=== PATIENT | female | born 1990 | race Caucasian/White ===

== ENCOUNTER 2020-08-02 06:55 | Outpatient (CLI) | payer OTHER, SELFPAY ==
--- NOTE | 2020-08-02 07:15 | US_ITS ---
WS: [id number] RIGHT UPPER QUADRANT ULTRASOUND HISTORY: R19.7 - Diarrhea, unspecified COMPARISON: None available. Liver: 18.1 cm in length. Moderately enlarged liver. Coarsened echotexture throughout. No mass identi fied. No bile duct dilatation. Gallbladder: Slightly contracted gallbladder with mild diffuse gallbladder wall thickening. Gallbladd er wall measures 3.8 mm. No pericholecystic fluid. No cholelithiasis. CBD: 0.4 cm Pancreas: Normal size and echogenicity. Right kidney: 12.9 cm in length. Normal size and echogenicity. No hydronephrosis or mass. Aorta and IVC: Unremarkable abdominal aorta and IVC. No ascites. US/US gall bladder 38241 IMPRESSION: 1. Mildly contracted gallbladder with thickened wall. No evidence for acute ch olecystitis. No pericholecystic fluid. 2. Enlarged liver with hepatic steatosis.
== END 2020-08-02 06:56 | disposition home or self-care (01) ==
PROVIDERS: PCP Clinical Nurse Specialist Adult Health; Visit Provider Surgery
DX: R19.7 Diarrhea, unspecified (principal); R16.0 Hepatomegaly, not elsewhere classified; K76.0 Fatty (change of) liver, not elsewhere classified
CPT/HCPCS: 76705

== ENCOUNTER 2020-08-30 06:05 | Outpatient (CLI) | payer OTHER, SELFPAY ==
--- NOTE | 2020-08-30 08:00 | NM_ITS ---
WS: [id number] NUCLEAR MEDICINE HIDA SCAN WITH GALLBLADDER EJECTION FRACTION HISTORY: R19.7 - Diarrhea, unspecified COMPARISON: Gallbladder ultrasound 08/02/2020 TECHNIQUE: The patient was intravenously injected with 5.9 mCi of TC99m Mebrofenin. Immediate imaging over the right upper quadrant was followed by 5 minute image and additional images for a total of 60 minutes. Normal uptake of radiotracer throughout the liver. Activity identified in the gallbladder at 30 minutes and well distended by 60 minutes. Activity in the proximal small bowel was seen by 20 minutes. Good washout of the radiotracer from the liver by 60 minutes. The patient then drank 8 ounces of Ensure Plus. Ejection fraction at 60 minutes was 92%. Normal GB ej ection fraction is 35-75%. Post fatty meal symptoms: None. NM/NM hepatobiliary w phar* [id number] IMPRESSION: 1. Normal HIDA scan. 2. Normal gallbladder ejection fraction.
== END 2020-08-30 06:06 | disposition home or self-care (01) ==
PROVIDERS: PCP Clinical Nurse Specialist Adult Health; Visit Provider Surgery
DX: R19.7 Diarrhea, unspecified (principal)
CPT/HCPCS: 78227; A9537

== ENCOUNTER → 2020-09-07 14:13 | Outpatient (BNVA) | payer OTHER, SELFPAY | PROVIDERS: PCP Clinical Nurse Specialist Adult Health; Visit Provider Surgery | DX: R19.7 Diarrhea, unspecified (principal) | CPT/HCPCS: 87635 ==

== ENCOUNTER 2020-09-13 09:26 | Day surgery (SDC) | payer OTHER, SELFPAY ==
[2020-09-13 09:46] VITALS: BP 134/88; PULSE 77; RESP 16; TEMP 37.1; O2SAT 97
--- NOTE | 2020-09-13 09:54 | ANES.PREANE2 ---
Pre-Anesthetic Assessment Pre-Anesthetic Assessment: Height/Weight: Height 1.78 m Weight 113.398 kg Preop Diagnosis: Change in bowel habits Proposed Procedure: Operation Date: 09/13/20 10:30 Proposed Procedures p EGD 05214 R19.7(Not Applicable) - Richard Dimas MD s Colonoscopy 12161 R19.7(Not Applicable) - Richard Dimas MD Familial anesthetic complications: slow to awakening with tonsillectomy Was Beta Gregg taken within 24 hours: N/A Was Clonidine taken within 24 hours: N/A Social: Social History: No alcohol and No tobacco Exam: Pre-Anes Outpt Exam: alert, oriented x 3, clear to auscultation bilaterally and regular rate & rhythm Airway: Submandibular: WNL Cervical ROM: WNL MP: 1 Dentition: Chipped History/ROS: No significant history except as noted Pulmonary: Pulmonary: Asthma (rarely uses inhaler) CV/HEM: CV/HEM: HTN : Comments: renal stones Hepatic: Hepatic: None reported GI: GI: GERD (during ) Metabolic: Metabolic: Morbid obesity Musc/skel: Musc/skel: Fibromyalgia Neuropsych: Neuropsych: Anxiety, Depression and CUMMINGS Anesthetic Plan: ASA status: 2 Anesthesia: Anesthesia Evaluation and MAC Risk of > 500 ml blood loss (7ml/kg in children): No PFSH Anesthesia PFSH: Family History Denies family history of Diabetes CAD (coronary artery disease) Cancer Hypertension Stroke Social History Smoking and tobacco status: never smoked Alcohol intake: never Lives independently: Yes Household members: spouse and children Marital status: Data Anesthesia Cardiac Studies: No Data to Display
[2020-09-13] MEDS: sodium chloride 0.9% 1,000 ML 30 ML IV (09:58)
[2020-09-13 10:45] LABS: OR HCG Qualitative Urine Negative (Negative)
--- NOTE | 2020-09-13 10:49 | P.HP_ITS ---
Same Day Surgery H&P Indication for Procedure/HPI DATE OF PROCEDURE: September 13, 2020 CHIEF COMPLAINT/INDICATIONFOR SURGICAL PROCEDURE: Change in bowel habits/NAUZEA PREOP DIAGNOSIS: Change in bowel habits/nausea PLANNED PROCEDRUE: Operation Date: 09/13/20 10:30 Proposed Procedures p EGD 50033 R19.7(Not Applicable) - Richard Dimas MD s Colonoscopy 51445 R19.7(Not Applicable) - Richard Dimas MD This is a pleasant 30 years old female patient with history of obesity of a current BMI of 37.1 patient gives history of fibromyalgia referred to my practice with worsening loose stools. Patient is referred to me for further evaluation as she reports that she has history of anxiety and never diagnosed with irritable bowel syndrome and she does not recall any history of inflammatory bowel disease. Patient is adopted so she is not aware of any particular family history with any GI problems including colon cancer. Never undergone a diagnostic EGD and celiac disease has not been ruled out. She still have her gallbladder and sometimes she does encounter loose stools after greasy food but currently any kind of food makes her have loose stools. No evidence of bleeding per rectum and no stool studies available. Interim history 09/13/2020 Patient comes today for diagnostic EGD and colonoscopy ROS All systems have been reviewed negative all systems have been reviewed negative except as per the above or per problem list Medications/Allergies* Home Medications Medication Instructions Recorded Confirmed Type albuterol sulfate 0.63 mg/3 mL 0.63 mg INHALATION Q6H 06/30/20 09/13/20 History solution for nebulization ascorbate calcium (vitamin C) 500 500 mg PO DAILY 06/30/20 09/13/20 History mg tablet buspirone 5 mg tablet 10 mg PO BID 06/30/20 09/13/20 History cholecalciferol (vitamin D3) 10 10 mcg PO DAILY 06/30/20 09/13/20 History mcg (400 unit) capsule citalopram 40 mg tablet 40 mg PO DAILY 06/30/20 09/13/20 History iron 18 mg tablet 18 mg PO DAILY 06/30/20 09/13/20 History loratadine [Claritin] 10 mg PO DAILY 09/09/20 09/13/20 History Allergies/Adverse Reactions Allergy/AdvReac Type Severity Reaction Status Date / Time amoxicillin Allergy Severe diarrhea Verified 09/13/20 10:51 Current Medications: Generic Name Dose Route Start Last Admin Trade Name Jose PRN Reason Stop Dose Admin Sodium Chloride 1,000 mls @ 30 mls/hr 09/13/20 09:45 09/13/20 09:58 Sodium Chloride 0.9% IV 09/14/20 09:44 30 mls/hr .Q24H ART Administration Pertinent History/Comorbid Conditions* Family History (Updated 06/30/20 @ 11:56 by Codie Hebert) Denies family history of Diabetes CAD (coronary artery disease) Cancer Hypertension Stroke Social History Smoking and tobacco status: never smoked Alcohol intake: never Lives independently: Yes Household members: spouse and children Marital status: Pertinent Exam Findings alert, oriented x 3, clear to auscultation bilaterally, regular rate & rhythm and procedure specific exam findings (Abdominal examination nontender nondistended soft) Recommendations Surgery/Procedure today (EGD and colonoscopy) Other Plans: Plan of care; After thorough history and physical examination and reviewing the chart, plan to perform a diagnostic esophagogastroduodenoscopy and diagnostic colonoscopy with possible biopsy and possible polypectomy. I discussed with the patient in detail the risks,benefits,alternatives and indications.The risk of aspiration, bleeding, soft tissue injury, perforation of the stomach/esophagus/colon and other potential concomitant complications were explained to the patient in details also the potential need for Thoracotomy and or Laproscoy/Laparotomy to repair any related complications including but not limited to colectomy and or Closotomy. The patient understood this well and did agree to proceed. Rationale was carefully and clearly discussed with the patient.Appropriate i nformed consent have been reviewed and signed Verbal and written Instructions were given to the patient for colonoscopy prep Coding Level of Care Code Acute Defensive Fire Control Systems Operator for Grace Loya
[2020-09-13 11:15] VITALS: BP 111/64; PULSE 71; RESP 16; TEMP 36.1; O2SAT 97
[2020-09-13 11:32] VITALS: BP 114/69; PULSE 63; RESP 16; O2SAT 99
--- NOTE | 2020-09-13 18:58 | ANE.PACU2 ---
Inpatient post-anesthesia follow up: Airway intact: Yes Vital signs: Temperature 97 F Pulse Rate 63 Respiratory Rate 16 Blood Pressure 114/69 Pulse Oximetry 99 Oxygen Delivery Me thod Room Air Oxygen Flow Rate Fraction of Inspir ed Oxygen Hydration adequate: Yes Nausea and vomiting: No Pain level: 2 Mental status: Baseline
[2020-09-14 06:03] LABS: H. Pylori / CLO Test Negative
== END 2020-09-13 11:50 | disposition home or self-care (01) ==
PROVIDERS: Anesthesiology; PCP Clinical Nurse Specialist Adult Health; Visit Provider Surgery
PROC: 0DJ08ZZ Inspection of Upper Intestinal Tract, Via Natural or Artificial Opening Endoscopic (ICD-10-PCS; CPT 43235; principal; 2020-09-13 10:30)
PROC: 0DJD8ZZ Inspection of Lower Intestinal Tract, Via Natural or Artificial Opening Endoscopic (ICD-10-PCS; CPT 45378; 2020-09-13 10:30)
DX: R19.4 Change in bowel habit (principal); R11.0 Nausea; K29.70 Gastritis, unspecified, without bleeding; K29.80 Duodenitis without bleeding; E66.01 Morbid (severe) obesity due to excess calories; Z68.37 Body mass index [BMI] 37.0-37.9, adult; M79.7 Fibromyalgia; I10 Essential (primary) hypertension
CPT/HCPCS: 43239; 45378; 81025; 82274; 83630; 84703; 87077; 87493; 87506; 88305; 96360; J2704; J7030

== ENCOUNTER → 2020-09-21 12:04 | Outpatient (BNVA) | payer OTHER, SELFPAY | PROVIDERS: PCP Clinical Nurse Specialist Adult Health; Visit Provider Surgery | DX: Z20.822 Contact with and (suspected) exposure to COVID-19 (principal) | CPT/HCPCS: 87635 ==

== ENCOUNTER 2020-09-27 05:52 | Day surgery (SDC) | payer OTHER, SELFPAY ==
[2020-09-26 14:18] VITALS: BMI 36.9
[2020-09-27 06:10] VITALS: BP 130/75; PULSE 97; RESP 18; TEMP 36.4; O2SAT 97
--- NOTE | 2020-09-27 06:21 | P.HP_ITS ---
Same Day Surgery H&P Indication for Procedure/HPI DATE OF PROCEDURE: September 27, 2020 CHIEF COMPLAINT/INDICATIONFOR SURGICAL PROCEDURE: Abdominal pain PREOP DIAGNOSIS: Change in bowel habits/nausea PLANNED PROCEDRUE: Operation Date: 09/27/20 07:00 Proposed Procedures p Laparoscopic Cholecystectomy 64577 r10.11(Not Applicable) - Richard Dimas MD This is a pleasant 30 years old female patient with history of obesity of a current BMI of 37.1 patient gives history of fibromyalgia referred to my practice with worsening loose stools. Patient is referred to me for further evaluation as she reports that she has history of anxiety and never diagnosed with irritable bowel syndrome and she does not recall any history of inflamma tory bowel disease. Patient is adopted so she is not aware of any particular family history with any GI problems including colon cancer. Never undergone a diagnostic EGD and celiac disease has not been ruled out. She still have her gallbladder and sometimes she does encounter loose stools after greasy food but currently any kind of food makes her have loose stools. No evidence of bleeding per rectum and no stool studies available. Interim history is 05/14/2020 Patient comes today status post EGD and was found to have esophagitis gastritis and duodenitis and was placed on PPI therapy. And per colonoscopy stool studies showed C. difficile which is likely contaminant, and she was placed on vancomycin p.o. otherwise normal findings.Patient Patient undergone a HIDA scan and showed symptoms with the procedure in the form of bloating and nausea. Patient comes today for elective laparoscopic cholecystectomy. ROS All systems have been reviewed negative except as per the above or per problem list. Medications/Allergies* Home Medications Medication Instructions Recorded Confirmed Type albuterol sulfate 0.63 mg/3 mL 0.63 mg INHALATION Q6H 06/30/20 09/26/20 History solution for nebulization ascorbate calcium (vitamin C) 500 500 mg PO DAILY 06/30/20 09/27/20 History mg tablet buspirone 5 mg tablet 10 mg PO BID 06/30/20 09/27/20 History cholecalciferol (vitamin D3) 10 10 mcg PO DAILY 06/30/20 09/27/20 History mcg (400 unit) capsule citalopram 40 mg tablet 40 mg PO DAILY 06/30/20 09/27/20 History iron 18 mg tablet 18 mg PO DAILY 06/30/20 09/27/20 History loratadine [Claritin] 10 mg PO DAILY 09/09/20 09/27/20 History celecoxib 50 mg PO DAILY 09/26/20 09/27/20 History Allergies/Adverse Reactions Allergy/AdvReac Type Severity Reaction Status Date / Time amoxicillin Allergy Severe diarrhea Verified 09/27/20 06:31 Pertinent History/Comorbid Conditions* Family History (Updated 06/30/20 @ 11:56 by Codie Hebert) Denies family history of Diabetes CAD (coronary artery disease) Cancer Hypertension Stroke Social History Smoking and tobacco status: never smoked Alcohol intake: never Lives independently: Yes Household members: spouse and children Marital status: Pertinent Exam Findings alert, oriented x 3, clear to auscultation bilaterally, regular rate & rhythm and procedure specific exam findings (Abdominal examination nontender nondistended soft) Recommendations Surgery/Procedure today (Laparoscopic cholecystectomy possible open) Other Plans: Plan of care; After thorough history physical examination and reviewing the chart and images with my personal intrepreatation.I counseled the patient for laparoscopic cholecystectomy possible open, indications risks including but not limited injury to the common bile duct and/or other viscera,that may require potential future surgical interventions including but not limited to ERCP and or laparatomy that may include Hepatobiliary surgery.Benefits and alternatives all discussed with the patient, and patient did agree to proceed accordingly. All questions have been answered and all concerns have been addressed to patient's satisfaction. Rationale was carefully and clearly discussed with the patient.Appropriate informed consent have been reviewed and signed. Coding Level of Care Code Acute Computer Security Coordinator for Grace Loya
--- NOTE | 2020-09-27 06:31 | ANES.PREANE2 ---
Pre-Anesthetic Assessment Pre-Anesthetic Assessment: Height/Weight: Height 1.75 m Weight 113.398 kg Temp Pulse Resp BP Pulse Ox 97.6 F 97 18 130/75 97 09/27/20 06:10 09/27/20 06:10 09/27/20 06:10 09/27/20 06:10 09/27/20 06:10 Preop Diagnosis: Biliary colic Proposed Procedure: Operation Date: 09/27/20 07:00 Proposed Procedures p Laparoscopic Cholecystectomy 62303 r10.11(Not Applicable) - Richard Dimas MD Familial anesthetic complications: None Was Beta Gregg taken within 24 hours: N/A Was Clonidine taken within 24 hours: N/A Last intake: Intake Last Liquid Date 09/26/20 Last Liquid Time 19:00 Last Solid Date 09/26/20 Last Solid Time 19:00 Social: Social History: No alcohol and No tobacco Exam: Pre-Anes Outpt Exam: alert, oriented x 3, clear to auscultation bilaterally and regular rate & rhythm Airway: Cervical ROM: WNL MP: 2 Dentition: Chipped Pulmonary: Pulmonary: Asthma (mild, seasonal, not used inhaler in months) Metabolic: Metabolic: Morbid obesity Neuropsych: Neuropsych: Anxiety Anesthetic Plan: ASA status: 2 Anesthesia: General Other: Sometimes wakes up anxious Risk of > 500 ml blood loss (7ml/kg in children): No PFSH Anesthesia PFSH: Family History Denies family history of Diabetes CAD (coronary artery disease) Cancer Hypertension Stroke Social History Smoking and tobacco status: never smoked Alcohol intake: never Lives independently: Yes Household members: spouse and children Marital status: Female Reproductive History: Date of last menstrual period: 09/26/20 Data Anesthesia Cardiac Studies: No Data to Display
[2020-09-27 06:34] VITALS: BMI 35.9
[2020-09-27] MEDS: sodium chloride 0.9% 1,000 ML 30 ML IV (06:57)
[2020-09-27] MEDS: vancomycin 1,500 MG/300 ML PIGGYBACK 200 MG IV (07:03)
[2020-09-27] MEDS: lidocaine 2% INJ 20 mL INJECTION (07:40)
--- NOTE | 2020-09-27 08:12 | P.OP_ITS ---
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 Time-out was done verifying the patient's name/date of /planned procedure and destination after the procedure, all were in agreement. SCDs confirmed to be functioning, preoperative antibiotics administered per protocol, and beta luciana protocol was confirmed. Patient was appropriately secured to the table, footboard was applied to the OR table, before prep and drape anesthesia was asked to tilt the table back and forth to make sure that the patient is appropriately secured and she was. Prep and drape of the abdomen was done under the usual sterile technique, followed by that supraumbilical skin incision,skin incision was done by a 15 blade knife, and stay sutures were applied to the fascia and Abrams trocar technique was used to enter the abdominal without injuring any abdominal viscera, started by low flow gas insufflation followed by a high flow, started with a 10 mm laparoscope and under direct vision there was no evidence of any injuries, the scope then switched to a 30? ,10 millimeter scope and under direct visualization 5 millimeter trocar was inserted in the epigastric region followed by two 5 mm trocars were inserted in the right upper quadrant that was done after injection of local lidocaine 2% at all incision sites. Gallbladder showed chronic cholecystitis, mild enlargement of the liver due to fatty liver rest of the viscera look normal. Patient was then positioned in the head up and tilted to the left Ratcheted forceps were introduced into the lateral most 5mm port and was applied unto the fundus of the gallbladder cephalad and using Bullet forceps the infundibulum of the gallbladder was retracted laterally. Using [place] forceps then L-hook cautery to dissect the peritoneum overlying the Calot's triangle whihc was then opened medially and laterally until the cystic duct and the cystic artery were skeletonized. Dissection was carried along the body of the gallbladder and after ensuring critical view of safety was identfied. Cystic duct and cystic artery where seen connected to the gallbladder. Clips were applied on the cystic duct towards the common bile duct 1 towards the gallb ladder then divided is in sharp scissors, 2 clips were then applied onto the cystic artery and 1 towards the gallbladder and divided by sharp scissors. Dissection was then carried along of the gallbladder from the gallbladder fossa using cautery as well as sharp dissection with heat energy. The gallbladder then was dissected out from the gallbladder fossa totally , cholecystectomy was then achieved and was placed in an Endo Catch bag and then retrieved from the Abrams trocar site under direct visualization using a 5 mm 30? scope through the epigastric trocar, specimen was then passed to the circulating nurse to go for permanent pathology,irrigation and hemostasis was done to the gallbladder fossa after hemostasis was secured, final survey laparoscopy was done that showed no injuries. Suction irrigation was obtained, compression hemostasis was achieved by placing a small piece of Surgicel at the gallbladder fossa. There was some oozing from the right far lateral 5 mm trocar. And Bovie cauterization was applied and that seemed to help yet I elected to place A 5 mm clips for completion. The supraumbilical fascial defect was then closed using interrupted #1 PDS sutures using a fascial closure device ;Rick Xie under direct visualization Gas was allowed to deflate,Trocars were then taken out under direct vision there was no evidence of bleeding Specimen was passed to the circulating nurse for permanent pathology. No drains were placed and the supraumbilical incision as well as all trocar sites were closed by 3-0 Vicryl then by 4-0 Monocryl to approximate the skin edges of the supraumbilical incision, dressing was applied in the form of Dermabond and the patient patient got extubated and was taken to recovery area in a stable condition. Count of sponges, needles and instruments were completed at the end of the procedure I was present for the whole entire procedure.
[2020-09-27 08:34] VITALS: BP 119/53; PULSE 96; RESP 12; TEMP 36.6; O2SAT 92
--- NOTE | 2020-09-27 08:36 | P.PCN_ITS ---
PACU note PACU note: VSS, Good respiratory effort, report to WRAPPER OFF Post-Anesthesia Exam: awake
--- NOTE | 2020-09-27 08:36 | PM.PACU ---
PACU note PACU note: VSS, Good respiratory effort, report to CHANGEOVER OPERATOR Post-Anesthesia Exam: awake
[2020-09-27 08:40] VITALS: BP 109/67; PULSE 95; RESP 16; O2SAT 94
[2020-09-27 08:45] VITALS: BP 115/56; PULSE 92; RESP 17; TEMP 36.4; O2SAT 95
[2020-09-27 08:46] VITALS: BP 115/56; PULSE 85; RESP 18; O2SAT 94
[2020-09-27] MEDS: HYDROcodone-acetaminophen 5-325 mg Tablet 1 TAB PO (09:18)
[2020-09-27 09:20] VITALS: BP 122/72; PULSE 64; RESP 18; O2SAT 96
--- NOTE | 2020-09-27 17:07 | ANE.PACU2 ---
Inpatient post-anesthesia follow up: Airway intact: Yes Vital signs: Temperature 97.6 F Pulse Rate 64 Respiratory Rate 18 Blood Pressure 122/72 Pulse Oximetry 96 Oxygen Delivery Me thod Room Air Oxygen Flow Rate Fraction of Inspir ed Oxygen Hydration adequate: Yes Nausea and vomiting: No Pain level: 2 Mental status: Baseline
== END 2020-09-27 09:42 | disposition home or self-care (01) ==
PROVIDERS: PCP Clinical Nurse Specialist Adult Health; Visit Provider Surgery
PROC: 0FT44ZZ Resection of Gallbladder, Percutaneous Endoscopic Approach (ICD-10-PCS; CPT 47562; principal; 2020-09-27 07:00)
DX: K80.10 Calculus of gallbladder with chronic cholecystitis without obstruction (principal); J45.909 Unspecified asthma, uncomplicated; E66.01 Morbid (severe) obesity due to excess calories; Z68.35 Body mass index [BMI] 35.0-35.9, adult; F41.9 Anxiety disorder, unspecified; M79.7 Fibromyalgia
CPT/HCPCS: 47562; 87493; 88304; 96365; J1100; J2370; J2405; J2704; J2710; J3010; J3370; J3490; J7030

== ENCOUNTER → 2022-12-11 08:05 | Outpatient (BNVA) | payer MEDICAID, SELFPAY | PROVIDERS: PCP Clinical Nurse Specialist Adult Health; Visit Provider Nurse Practitioner Women's Health | DX: R10.2 Pelvic and perineal pain (principal); E28.2 Polycystic ovarian syndrome | CPT/HCPCS: 76830 ==

== ENCOUNTER → 2022-12-21 07:04 | Outpatient (BNVA) | payer MEDICAID, SELFPAY | PROVIDERS: PCP Clinical Nurse Specialist Adult Health; Visit Provider Clinical Nurse Specialist Adult Health | DX: R30.0 Dysuria (principal); R39.15 Urgency of urination | CPT/HCPCS: 81000; 87086 ==

== ENCOUNTER → 2023-01-23 11:39 | Outpatient (BNVA) | payer MEDICAID, SELFPAY | PROVIDERS: PCP Clinical Nurse Specialist Adult Health; Visit Provider Clinical Nurse Specialist Adult Health | DX: I10 Essential (primary) hypertension (principal) | CPT/HCPCS: 80053; 83036; 84443; 85025 ==

== ENCOUNTER → 2023-06-05 07:45 | Outpatient (BNVA) | payer OTHER, MEDICAID, SELFPAY | PROVIDERS: PCP Clinical Nurse Specialist Adult Health; Visit Provider Clinical Nurse Specialist Adult Health | DX: I10 Essential (primary) hypertension (principal); R73.03 Prediabetes | CPT/HCPCS: 80053; 83036; 85025 ==

== ENCOUNTER → 2023-06-19 07:54 | Outpatient (BNVA) | payer OTHER, MEDICAID, SELFPAY | PROVIDERS: Visit Provider Obstetrics & Gynecology | DX: R10.2 Pelvic and perineal pain (principal); N83.02 Follicular cyst of left ovary; N83.01 Follicular cyst of right ovary | CPT/HCPCS: 76830 ==

== ENCOUNTER 2023-06-27 06:00 | Outpatient (RCR) | payer OTHER, MEDICAID, SELFPAY | END 2023-07-26 23:59 | disposition home or self-care (01) | LOC: SPT 06:00 | PROVIDERS: PCP Clinical Nurse Specialist Adult Health; Visit Provider Obstetrics & Gynecology | DX: R10.2 Pelvic and perineal pain (principal) | CPT/HCPCS: 97110; 97161; 97530 ==

== ENCOUNTER 2023-07-27 06:00 | Outpatient (RCR) | payer OTHER, MEDICAID, SELFPAY | END 2023-08-25 23:59 | disposition home or self-care (01) | LOC: SPT 06:00 | PROVIDERS: PCP Clinical Nurse Specialist Adult Health; Visit Provider Obstetrics & Gynecology | DX: R10.2 Pelvic and perineal pain (principal) | CPT/HCPCS: 97110; 97530 ==

== ENCOUNTER 2023-08-26 06:00 | Outpatient (RCR) | payer OTHER, MEDICAID, SELFPAY | END 2023-09-25 23:59 | disposition home or self-care (01) | LOC: SPT 06:00 | PROVIDERS: PCP Clinical Nurse Specialist Adult Health; Visit Provider Obstetrics & Gynecology | DX: R10.2 Pelvic and perineal pain (principal) | CPT/HCPCS: 97110 ==

== ENCOUNTER 2023-09-26 06:00 | Outpatient (RCR) | payer OTHER, MEDICAID, SELFPAY | END 2023-10-26 23:59 | disposition home or self-care (01) | LOC: SPT 06:00 | PROVIDERS: PCP Clinical Nurse Specialist Adult Health; Visit Provider Obstetrics & Gynecology | DX: R10.2 Pelvic and perineal pain (principal) | CPT/HCPCS: 97110 ==

== ENCOUNTER → 2023-10-02 07:47 | Outpatient (BNVA) | payer OTHER, MEDICAID, SELFPAY | PROVIDERS: PCP Clinical Nurse Specialist Adult Health; Visit Provider Clinical Nurse Specialist Adult Health | DX: I10 Essential (primary) hypertension (principal); R73.03 Prediabetes; M79.7 Fibromyalgia | CPT/HCPCS: 80053; 83036; 84443; 85025; 85651; 86140 ==

== ENCOUNTER 2023-10-27 06:00 | Outpatient (RCR) | payer MEDICAID, SELFPAY | END 2023-11-22 23:59 | disposition home or self-care (01) | LOC: SPT 06:00 | PROVIDERS: PCP Clinical Nurse Specialist Adult Health; Visit Provider Obstetrics & Gynecology | DX: R10.2 Pelvic and perineal pain (principal) | CPT/HCPCS: 97110 ==

== ENCOUNTER → 2023-10-31 07:05 | Outpatient (BNVA) | payer OTHER, MEDICAID, SELFPAY | PROVIDERS: PCP Clinical Nurse Specialist Adult Health; Visit Provider Clinical Nurse Specialist Adult Health | DX: R30.0 Dysuria (principal) | CPT/HCPCS: 81000; 81015; 87086 ==

== ENCOUNTER 2024-07-28 09:40 | Outpatient (CLI) | payer MEDICAID, SELFPAY ==
--- NOTE | 2024-07-28 09:43 | MR_ITS ---
WS: [id number] MRI LEFT KNEE HISTORY: PAIN IN L KNEE COMPARISON: None available. Anterior cruciate ligament: Intact. Posterior cruciate ligament: Intact. Edema surrounds the PCL. Medial collateral ligament: There is edema along the medial knee adjacent to the medial collateral ligament. High-grade focal tear involving the proximal MCL with adjacent edema. Posterior lateral corner structures: Large amount of edema along the lateral knee. There is increased T2 signal with thickening of the popliteus tendon as it extends superior to the fibular head. The biceps femoris tendon is intact. Abnormal signal in the fibular collateral ligament consistent with high-grade tear. Medial menisci: Intact. Normal signal, size and shape. Lateral meniscus: Intact. Normal signal, size and shape. Meniscus is normal signal and shape. There is edema and signal abnormality extending close to the superior lateral meniscus near the capsule. Extensor mechanism: Distal quadriceps tendon and patellar tendons are intact. Fluid and soft tissue: Small suprapatellar joint effusion. There is edema bilaterally along the medial and lateral compartments. Small Linton's cyst with additional fluid extending along the medial gastrocnemius from partial tear of the Linton's cyst. Osseous and articular structures: Patellofemoral compartment: Normal. Medial compartment: No narrowing of the joint. There is a very small amount of edema involving the high medial femoral condyle. This is at the site of the partial MCL tear. Lateral compartment: Large amount of edema in the lateral femoral condyle. There are tiny avulsion fractures from the femoral condyle where the popliteus and fibular collateral ligament attach. No displacement of the avulsion fractures. No avulsion fracture from the fibular head. There is a small cyst in the proximal fibula. MR/MR knee LT wo con* [id number] IMPRESSION: 1. Significant injury to the posterior lateral corner structures. 2. High-grade partial tears involving the popliteus tendon and the fibular col lateral ligament. The overlying biceps femoris tendon is intact. 3. Extensive marrow edema in the lateral femoral condyle with small avulsion f ractures at the site of the fibular collateral ligament and popliteus tendon. 4. Partial tear of MCL. 5. Ruptured Linton's cyst. 6. Marrow edema in the medial femoral condyle at the site of MCL injury. 7. Small amount of edema surrounding the PCL but no tear.
== END 2024-07-28 09:41 | disposition home or self-care (01) ==
LOC: RAD 09:42
PROVIDERS: PCP Family Medicine; Visit Provider Family Medicine
DX: S83.422A Sprain of lateral collateral ligament of left knee, initial encounter (principal); R93.6 Abnormal findings on diagnostic imaging of limbs; X58.XXXA Exposure to other specified factors, initial encounter; M67.864 Other specified disorders of tendon, left knee; R60.0 Localized edema; S83.412A Sprain of medial collateral ligament of left knee, initial encounter; M66.0 Rupture of popliteal cyst; M25.462 Effusion, left knee; M85.462 Solitary bone cyst, left tibia and fibula
CPT/HCPCS: 73721

== ENCOUNTER → 2024-08-12 10:41 | Outpatient (BNVA) | payer MEDICAID, SELFPAY | PROVIDERS: PCP Family Medicine; Visit Provider Specialist | DX: S83.8X2A Sprain of other specified parts of left knee, initial encounter (principal); X58.XXXA Exposure to other specified factors, initial encounter | CPT/HCPCS: 73560; 73565 ==